=== PATIENT | female | born 1995 | race Caucasian/White ===

== ENCOUNTER 2019-11-02 11:18 | Emergency (ER) | payer BC ==
[~2019-11-02] VITALS: Ht 157.5 cm; Wt 57.0 kg
[~2019-11-02 11:18] MED LIST: ENAL5TAB85 PO
--- NOTE | 2019-11-02 11:53 | NUR ---
PT NOT IN ROOM PT TAKEN TO CT.
[2019-11-02] MEDS ORDERED: acetaminophen 325mg tablet PO ONE ×3 (12:35→12:45)
[2019-11-02 12:54] LABS: BASOPHILS # (AUTO) 0.1 X10'3 (0-0.2); BASOPHILS % (AUTO) 0.9 % (0-1); EOSINOPHILS # (AUTO) 0.1 X10'3 (0-0.9); EOSINOPHILS % (AUTO) 0.7 % (0-6); HEMATOCRIT 39.1 % (35.0-45.0); HEMOGLOBIN 12.7 g/dl (12.0-16.0); LYMPHOCYTES # (AUTO) 2.8 X10'3 (1.1-4.8); MEAN CORPUSCULAR HEMOGLOBIN 30.1 PG (27.0-31.0); MEAN CORPUSCULAR HGB CONC 32.5 g/dL (33.0-36.5); MEAN CORPUSCULAR VOLUME 92.6 FL (78-98); MONOCYTES % (AUTO) 9.9 % (2-12); NEUTROPHILS # (AUTO) 6.3 X10'3 (1.8-7.7); NEUTROPHILS % (AUTO) 61.5 % (42-75); PLATELET COUNT 211 X10'3 (140-440); RED BLOOD COUNT 4.22 X10'6 (4.20-5.60); RED CELL DISTRIBUTION WIDTH 17.5 % (11.5-14.5); WHITE BLOOD COUNT 10.3 X10'3 (4.5-11.0)
[2019-11-02 13:04] LABS: ALANINE AMINOTRANSFERASE 30 U/L (12-78); ALBUMIN 3.6 G/DL (3.4-5.0); ALBUMIN/GLOBULIN RATIO 1.3 (1.1-1.5); ALKALINE PHOSPHATASE 47 IU/L (46-116); ANION GAP 7 (8-16); ASPARTATE AMINO TRANSFERASE 19 U/L (10-37); BILIRUBIN,TOTAL 0.3 MG/DL (0.1-1.0); BLOOD UREA NITROGEN 26 MG/DL (7-18); BUN/CREATININE RATIO 22.6 (6.6-38.0); CALCIUM 9.5 MG/DL (8.5-10.1); CHLORIDE 105 MMOL/L (99-107); CREATININE 1.15 MG/DL (0.40-0.90); GLUCOSE 132 MG/DL (70-104); MAGNESIUM 1.5 MG/DL (1.5-2.4); POTASSIUM 4.1 MMOL/L (3.5-5.1); SODIUM 140 MMOL/L (135-145); TOTAL CARBON DIOXIDE 28.1 MMOL/L (24-32); TOTAL PROTEIN 6.3 G/DL (6.4-8.2); eGFR 60 ML/MIN
[2019-11-02] MEDS ORDERED: AZIT250T81 PO (13:13)
[2019-11-02 13:24] LABS: TOTAL CELLS COUNTED 100
[2019-11-02 13:27] LABS: ANISOCYTOSIS 1+; PLATELET ESTIMATE NORMAL
[2019-11-02 13:28] LABS: TEAR DROP CELLS FEW
[2019-11-02 13:53] VITALS: BP 121/84
[2019-11-02] MEDS ORDERED: methylPREDNISolone acetate 80mg/ml inj**IM only ONE (21:18)
== END 2019-11-02 13:27 | disposition home or self-care (01) ==
LOC: ER 11:18
DX: J32.3 Chronic sphenoidal sinusitis (principal); R11.10 Vomiting, unspecified; Z79.2 Long term (current) use of antibiotics; Z79.899 Other long term (current) drug therapy
CPT/HCPCS: 36415; 70450; 80053; 83735; 85025; 99284; J1040